=== PATIENT | male | born 1990 | race Caucasian/White ===

== ENCOUNTER 2022-04-01 14:15 | Outpatient (RCR) | payer MEDICARE, OTHER, MEDICAID, SELFPAY | END 2023-03-18 11:02 | disposition home or self-care (01) | PROVIDERS: Visit Provider Physician Assistant | DX: G56.03 Carpal tunnel syndrome, bilateral upper limbs (principal); M25.531 Pain in right wrist; M25.532 Pain in left wrist; Z51.89 Encounter for other specified aftercare | CPT/HCPCS: 97035; 97110; 97140; 97535; X5282 ==

== ENCOUNTER 2022-10-27 14:35 | Emergency (ER) | payer MEDICARE, OTHER, SELFPAY ==
[2022-10-27 14:42] VITALS: BP 123/76; PULSE 85; RESP 20; TEMP 36.6; O2SAT 97; BMI 29.7
[2022-10-27 15:43] VITALS: BP 113/87; PULSE 80; O2SAT 95
[2022-10-27 15:44] VITALS: PULSE 78; O2SAT 96
[2022-10-27 15:45] VITALS: PULSE 82; O2SAT 94
--- NOTE | 2022-10-27 15:53 | ED_ITS ---
HPI - Arrhythmia/Palpitations General Chief Complaint: Arrhythmia/Palpitations Stated Complaint: Heart Concerns Time Seen by Provider: 10/27/22 15:29 History of Present Illness HPI narrative: This 32-year-old male uses Ukrainian sign language for communication. He comes in reporting some palpitations and some very brief discomfort in his left axillary region. These symptoms have been intermittent over the past week or so. He does not have any cardiac history. He denies having any nausea, vomiting, lightheadedness, shortness of breath, or diaphoresis. He does not have any cardiac history or exercise intolerance. Related Data Allergies Allergy/AdvReac Type Severity Reaction Status Date / Time No Known Drug Allergies Allergy Verified 10/27/22 14:50 Review of Systems Status of ROS: Reports: 10 or more systems reviewed and unremarkable except as noted in History and below Narrative: Constitutional: No fevers, no weight gain or loss. Eyes: No discharge. No vision changes. HENT: No congestion, no sore throat, no ear pain. Cardiovascular: Occasional palpitations and brief episodes of chest discomfort in the left axilla and pectoral region. Respiratory: No shortness of breath, no wheezes, no cough. Gastrointestinal: No abdominal pain, no vomiting, no diarrhea. Genitourinary: No dysuria, no hematuria. Musculoskeletal: Normal range of motion. Skin: No rashes, no pruritis. Neurological: No dizziness, weakness, sensory change, speech change. Endo/Heme/Allergies: No bruising or bleeding. No polydipsia. Pysch: no suicidality, no anxiety, no insomnia. All other systems reviewed and are negative. PFSH PFSH Social History Smoking Status: Never smoker Do you use any of these nicotine containing products: None Second hand tobacco smoke exposure: No How often do you have a drink containing alcohol: monthly or less AUDIT-C Alcohol total score: 1 Non-prescribed substance use: denies use Exam Narrative: Exam Narrative: Constitutional: Well-developed, well-nourished, no acute distress. HEENT: Normocephalic, atraumatic. Neck: Normal range of motion. Nontender. Supple. Heart: Regular. No murmurs. Normal rate. Intact distal pulses. Lungs: Clear to auscultation. No chest discomfort. No wheezes, rhonchi, or rales. Abdomen: Normal bowel sounds. Nontender. No rebound tenderness. Genitalia: Deferred. Back: No midline tenderness. Normal range of motion. Extremities: Normal range of motion. No injury. Skin: Intact. No rash. Warm. No erythema or pallor. Neurologic: No altered sensation. No weakness. Alert and oriented. Deaf. Psychiatric: No suicidality. No anxiety or depression. No insomnia. Nursing notes and vitals signs are reviewed. Const: Vital Signs, click to edit/add: Vital Signs - 24 hr 10/27/22 14:42 10/27/22 15:43 10/27/22 15:44 Temperature 97.9 F Pulse Rate 80 78 Pulse Rate [Pulse Oximeter] 85 Respiratory Rate 20 Blood Pressure 113/87 Blood Pressure [Ri ght Upper Arm] 123/76 Pulse Oximetry 97 95 96 Oxygen Delivery Me thod Room Air 10/27/22 15:45 10/27/22 16:00 10/27/22 16:15 Temperature Pulse Rate 82 83 95 Pulse Rate [Pulse Oximeter] Respiratory Rate Blood Pressure Blood Pressure [Ri ght Upper Arm] Pulse Oximetry 94 96 96 Oxygen Delivery Me thod Course Vital Signs Vital signs: Initial Vital Signs Temperature 97.9 F 10/27/22 14:42 Temperature Source Temporal Artery Scan 10/27/22 14:42 Pulse Rate 85 10/27/22 14:42 Pulse Rhythm 10/27/22 14:42 Pulse Strength 3+ Normal 10/27/22 14:42 Respiratory Rate 10/27/22 14:42 Blood Pressure 123/76 10/27/22 14:42 Blood Pressure Mean 91 10/27/22 14:42 Blood Pressure Position Sitting 10/27/22 14:42 Pulse Oximetry 97 10/27/22 14:42 Oxygen Delivery Method 10/27/22 14:42 Vital Signs Temperature 97.9 F 10/27/22 14:42 Pulse Rate 85 10/27/22 14:42 Respiratory Rate 20 10/27/22 14:42 Blood Pressure 123/76 10/27/22 14:42 Pulse Oximetry 97 10/27/22 14:42 Oxygen Delivery Method 10/27/22 14:42 Temperature 97.9 F 10/27/22 14:42 Pulse Rate 95 10/27/22 16:15 Respiratory Rate 20 10/27/22 14:42 Blood Pressure 113/87 10/27/22 15:43 Pulse Oximetry 96 10/27/22 16:15 Oxygen Delivery Method 10/27/22 14:42 MDM - Arrhythmia/Palpitations MDM Narrative Medical decision making narrative: This patient comes in reporting some occasional palpitations and brief episodes of left axillary and pectoral discomfort lasting a few seconds. EKG returns with normal findings. Lab results also are in normal range. His troponin is 0. The patient was observed on the monitor and has normal sinus rhythm without sign of ectopy. These results are reassuring to the patient. Most likely he is having some palpitations and some chest wall pain. At the time of discharge the patient appears safe for outpatient management. The treatment plan is reviewed along with written and verbal return precautions. Reasons to return and the importance of close followup were also reviewed. Lab Data Labs: Lab Results 10/27/22 10/27/22 10/27/22 Range/Units 16:09 16:09 16:09 WBC 7.16 (4.50-11.00) K/uL RBC 4.90 (4.30-5.90) m/uL Hgb 15.8 (13.5-17.5) gm/dL Hct 44.8 (37.0-53.0) % MCV 91 (80-100) fL MCH 32 (26-34) pg MCHC 35 (32-36) gm/dL RDW Coeff of Celso 11.8 (11.5-15.5) % Plt Count 273 (140-440) K/uL Neut % (Auto) 53.3 (42.0-72.0) % Lymph % (Auto) 36.5 (20-44) % [place] % (Auto) 8.1 (0.0-11.0) % Eos % (Auto) 1.5 (0.0-7.0) % Baso % (Auto) 0.6 (0.0-3.0) % Neut # (Auto) 3.82 (1.7-7.0) K/uL Lymph # (Auto) 2.61 (0.90-2.90) K/uL [place] # (Auto) 0.60 (0.00-0.90) K/UL Eos # (Auto) 0.11 (0.00-0.50) K/uL Baso # (Auto) 0.04 (0.00-0.30) K/uL Sodium 140 (135-149) mmol/L Potassium 4.2 (3.6-5.1) mmol/L Chloride 106 (96-114) mmol/L Carbon Dioxide 27 (20-32) mmol/L BUN 14 (5-24) mg/dL Creatinine 1.0 (0.5-1.5) mg/dL Estimated Creat Clear 119.85 Estimated GFR 103 ml/min Glucose 88 (60-115) mg/dL Calcium 9.3 (8.4-10.6) mg/dL Magnesium 1.8 (1.5-2.6) mg/dL POC Troponin I 0.00 L (0.01-0.04) ng/ml ECG Data Attestation: I personally reviewed and interpreted this ECG as follows: Interpretation: Normal sinus rhythm. Rate is 74 beats per minute. There are no ST or T-wave abnormalities. Discharge Plan Discharge Clinical Impression: Acute chest wall pain, Palpitations Patient Disposition: Home, Self-Care Condition: Stable Additional Instructions: Take [id number] medicines as needed and directed. Follow up with primary physician as needed or return if recurrent or worsening symptoms happen. Follow Up/Referrals: Provider,Not a Local [Primary Care Provider] - Stand Alone Forms: [facility] Info Instructions
[2022-10-27 16:00] VITALS: PULSE 83; O2SAT 96
[2022-10-27 16:15] VITALS: PULSE 95; O2SAT 96
[2022-10-27 16:21] LABS: Basophils Absolute Auto 0.04 K/uL (0.00-0.30); Basophils Percent Auto 0.6 % (0.0-3.0); Eosinophils Absolute Auto 0.11 K/uL (0.00-0.50); Eosinophils Percent Auto 1.5 % (0.0-7.0); Hematocrit 44.8 % (37.0-53.0); Hemoglobin* 15.8 gm/dL (13.5-17.5); Lymphocytes Absolute Auto 2.61 K/uL (0.90-2.90); Lymphocytes Percent Auto 36.5 % (20-44); Mean Corpuscular HGB Conc 35 gm/dL (32-36); Mean Corpuscular Hemoglobin 32 pg (26-34); Mean Corpuscular Volume 91 fL (80-100); Monocytes Percent Auto 8.1 % (0.0-11.0); Neutrophils Absolute Auto 3.82 K/uL (1.7-7.0); Neutrophils Percent Auto 53.3 % (42.0-72.0); Platelet Count* 273 K/uL (140-440); RDW Coefficient of Variation % 11.8 % (11.5-15.5); White Blood Count* 7.16 K/uL (4.50-11.00)
[2022-10-27 16:34] LABS: Slide Review Reflex No
[2022-10-27 16:41] LABS: Chloride* 106 mmol/L (96-114)
[2022-10-27 16:42] LABS: Potassium* 4.2 mmol/L (3.6-5.1); Sodium* 140 mmol/L (135-149)
[2022-10-27 16:44] LABS: Est. Creatinine Clearance* 119.85; Estimated Glomerular Filt Rate 103 ml/min
[2022-10-27 16:45] LABS: Blood Urea Nitrogen* 14 mg/dL (5-24); Calcium* 9.3 mg/dL (8.4-10.6); Carbon Dioxide* 27 mmol/L (20-32); Glucose* 88 mg/dL (60-115); Magnesium* 1.8 mg/dL (1.5-2.6)
== END 2022-10-27 17:12 | disposition home or self-care (01) ==
PROVIDERS: Emergency Provider Emergency Medicine Emergency Medical Services
DX: R00.2 Palpitations (principal)
CPT/HCPCS: 36415; 80048; 83735; 84484; 85025; 99284; 99285

== ENCOUNTER 2023-01-22 13:55 | Emergency (ER) | payer MEDICARE, OTHER, SELFPAY ==
[2023-01-22 14:04] VITALS: BP 131/79; PULSE 80; RESP 14; TEMP 36.6; O2SAT 97; BMI 29.7
--- NOTE | 2023-01-22 15:30 | CRLHL7_ITS ---
For Patients: As a result of the Century Cures Act, medical imaging exams and procedure reports are released immediately into your electronic medical record. You may view this report before your referring provider. If you have questions, please contact your health care provider. INDICATION: CHEST PAIN TECHNIQUE: Chest 1 view COMPARISON: None FINDINGS: Cardiovascular and mediastinum: Heart size and vasculature are normal in caliber and appearance. Lungs and pleural spaces: Lungs are clear. No sign of infiltrate or mass. No sign of pleural effusion. No pneumothorax. Bones and soft tissues: No significant findings. IMPRESSION: No acute findings. Dictated by José Luis Nunn MD @ 01/22/2023 3:58:13 PM (Electronically Signed)
[2023-01-22 15:51] LABS: Basophils Absolute Auto 0.04 K/uL (0.00-0.30); Basophils Percent Auto 0.5 % (0.0-3.0); Eosinophils Absolute Auto 0.07 K/uL (0.00-0.50); Eosinophils Percent Auto 0.9 % (0.0-7.0); Hematocrit 46.9 % (37.0-53.0); Hemoglobin* 16.4 gm/dL (13.5-17.5); Immature Granulocytes Abs Auto 0.02 K/uL (0.00-0.30); Immature Granulocytes Pct Auto 0.3 %; Lymphocytes Absolute Auto 2.59 K/uL (0.90-2.90); Lymphocytes Percent Auto 34.5 % (20-44); Mean Corpuscular HGB Conc 35 gm/dL (32-36); Mean Corpuscular Hemoglobin 32 pg (26-34); Mean Corpuscular Volume 91 fL (80-100); Monocytes Percent Auto 6.8 % (0.0-11.0); Neutrophils Absolute Auto 4.27 K/uL (1.7-7.0); Platelet Count* 282 K/uL (140-440); RDW Coefficient of Variation % 11.6 % (11.5-15.5); Red Blood Count 5.14 m/uL (4.30-5.90)
[2023-01-22 15:54] LABS: Slide Review Reflex No
--- NOTE | 2023-01-22 16:01 | ED.GENADULT ---
HPI - General Adult General Chief complaint: Arrhythmia/Palpitations <Avi Levi MD - Last Filed: 01/22/23 16:03> Stated complaint: EKG from <Avi Levi MD - Last Filed: 01/22/23 16:03> Time Seen by Provider: 01/22/23 15:21 <Avi Levi MD - Last Filed: 01/22/23 16:03> History of Present Illness HPI narrative: Patient is a 32-year-old reasonably healthy gentleman who has been experiencing increasing chest pain just to the left of the midline for the last several weeks. Seems to be escalating. He has not experienced any palpitations nausea vomiting weakness fevers chills diaphoresis. He has not been short of breath or coughing. Patient was seen in urgent care today and although his EKG was completely normal he was sent over for further evaluation due to his chest pain. Patient has otherwise been in his usual state of health. Patient's heart hearing and seen with the interactive graphic designer. <Avi Levi MD - Last Filed: 01/22/23 16:03> Related Data Home medications: Home Medications Medication Instructions Recorded Confirmed atorvastatin 10 mg tablet 10 mg PO QDAY 01/22/23 01/22/23 venlafaxine 75 mg capsule,extended 75 mg PO QDAY 01/22/23 01/22/23 release 24 hr (Effexor XR) <Avi Levi MD - Last Filed: 01/22/23 16:03> Allergies/adverse reactions: Allergies Allergy/AdvReac Type Severity Reaction Status Date / Time No Known Drug Allergies Allergy Verified 10/27/22 14:50 <Avi Levi MD - Last Filed: 01/22/23 16:03> Review of Systems Status of ROS: Reports: 10 or more systems reviewed and unremarkable except as noted in History and below <Avi Levi MD - Last Filed: 01/22/23 16:03> PFSH PFSH Social History: Social History Smoking Status: Never smoker Do you use any of these nicotine containing products: None Second hand tobacco smoke exposure: No How often do you have a drink containing alcohol: monthly or less AUDIT-C Alcohol total score: 1 Non-prescribed substance use: denies use <Avi Levi MD - Last Filed: 01/22/23 16:03> Exam Narrative: Exam Narrative: EXAM GENERAL: Patient appears comfortable and well. EYES: No scleral icterus. LYMPH: No supraclavicular or cervical lymphadenopathy. SKIN: Visible skin seen during exam normal or with benign process only. EXT: No dependent lower extremity pedal edema. HEART: Regular rate and rhythm with no murmurs, rubs, or gallops. LUNGS: Clear to auscultation bilaterally with no crackles or wheezes. ABD: Soft, non tender, non distended. PSYCH: Good eye contact, speech is not pressured. <Avi Levi MD - Last Filed: 01/22/23 16:03> Const: Vital Signs, click to edit/add: Vital Signs - 24 hr 01/22/23 14:04 01/22/23 16:18 Temperature 97.8 F Pulse Rate [Pulse Oximeter] 80 80 Respiratory Rate 14 16 Blood Pressure [Ri ght Upper Arm] 131/79 129/84 Pulse Oximetry 97 97 Oxygen Delivery Me thod Room Air Room Air <Avi Levi MD - Last Filed: 01/22/23 16:03> Vital Signs, click to edit/add: Vital Signs - 24 hr 01/22/23 14:04 01/22/23 16:18 Temperature 97.8 F Pulse Rate [Pulse Oximeter] 80 80 Respiratory Rate 14 16 Blood Pressure [Ri ght Upper Arm] 131/79 129/84 Pulse Oximetry 97 97 Oxygen Delivery Me thod Room Air Room Air <Lico Dacosta MD - Last Filed: 01/22/23 16:38> Course Course Hospital Course: Patient seen examined EKG personally reviewed troponin D-dimer CBC basic metabolic panel portable chest x-ray ordered. Case will be followed up by my colleague. <Avi Levi MD - Last Filed: 01/22/23 16:03> Reevaluation(s) Reevaluation #1: 4:00 PM sign-out accepted from Dr. Levi, please see his note for complete history and physical. Briefly, 32-year-old male who has been experiencing chest pains for the last couple of weeks, initially seen in urgent care and sent to the emergency department. Initial EKG reassuring. Labs are pending. <Lico Dacosta MD - Last Filed: 01/22/23 16:38> Time: 16:00 <Lico Dacosta MD - Last Filed: 01/22/23 16:38> Reevaluation #2: Chest x-ray independently interpreted by me does not demonstrate any acute effusion. Labs independently interpreted by me demonstrates normal CBC, negative troponin, negative basic panel. <Lico Dacosta MD - Last Filed: 01/22/23 16:38> Time: 16:23 <Lico Dacosta MD - Last Filed: 01/22/23 16:38> Reevaluation #3: Troponin is negative, given duration of symptoms, repeat troponin not indicated for rule out ACS. Patient is stable for discharge with follow-up with primary care. At this time, no evidence for acute coronary syndrome, pulmonary embolism, pneumonia, hemothorax, pneumothorax. <Lico Dacosta MD - Last Filed: 01/22/23 16:38> Time: 16:38 <Lico Dacosta MD - Last Filed: 01/22/23 16:38> Vital Signs Vital signs: Initial Vital Signs Temperature 97.8 F 01/22/23 14:04 Temperature Source Temporal Artery Scan 01/22/23 14:04 Pulse Rate 80 01/22/23 14:04 Pulse Rhythm Regular 01/22/23 14:04 Respiratory Rate 14 01/22/23 14:04 Blood Pressure 131/79 01/22/23 14:04 Blood Pressure Mean 96 01/22/23 14:04 Blood Pressure Position Sitting 01/22/23 14:04 Pulse Oximetry 97 01/22/23 14:04 Oxygen Delivery Method Room Air 01/22/23 14:04 Vital Signs Temperature 97.8 F 01/22/23 14:04 Pulse Rate 80 01/22/23 14:04 Respiratory Rate 14 01/22/23 14:04 Blood Pressure 131/79 01/22/23 14:04 Pulse Oximetry 97 01/22/23 14:04 Oxygen Delivery Method Room Air 01/22/23 14:04 Temperature 97.8 F 01/22/23 14:04 Pulse Rate 80 01/22/23 16:18 Respiratory Rate 16 01/22/23 16:18 Blood Pressure 129/84 01/22/23 16:18 Pulse Oximetry 97 01/22/23 16:18 Oxygen Delivery Method Room Air 01/22/23 16:18 <Avi Levi MD - Last Filed: 01/22/23 16:03> Initial Vital Signs Temperature 97.8 F 01/22/23 14:04 Temperature Source Temporal Artery Scan 01/22/23 14:04 Pulse Rate 80 01/22/23 14:04 Pulse Rhythm Regular 01/22/23 14:04 Respiratory Rate 14 01/22/23 14:04 Blood Pressure 131/79 01/22/23 14:04 Blood Pressure Mean 96 01/22/23 14:04 Blood Pressure Position Sitting 01/22/23 14:04 Pulse Oximetry 97 01/22/23 14:04 Oxygen Delivery Method Room Air 01/22/23 14:04 Vital Signs Temperature 97.8 F 01/22/23 14:04 Pulse Rate 80 01/22/23 14:04 Respiratory Rate 14 01/22/23 14:04 Blood Pressure 131/79 01/22/23 14:04 Pulse Oximetry 97 01/22/23 14:04 Oxygen Delivery Method Room Air 01/22/23 14:04 Temperature 97.8 F 01/22/23 14:04 Pulse Rate 80 01/22/23 16:18 Respiratory Rate 16 01/22/23 16:18 Blood Pressure 129/84 01/22/23 16:18 Pulse Oximetry 97 01/22/23 16:18 Oxygen Delivery Method Room Air 01/22/23 16:18 <Lico Dacosta MD - Last Filed: 01/22/23 16:38> Medical Decision Making Lab Data Labs: Lab Results 01/22/23 Range/Units 15:40 WBC 7.50 (4.50-11.00) K/uL RBC 5.14 (4.30-5.90) m/uL Hgb 16.4 (13.5-17.5) gm/dL Hct 46.9 (37.0-53.0) % MCV 91 (80-100) fL MCH 32 (26-34) pg MCHC 35 (32-36) gm/dL RDW Coeff of Celso 11.6 (11.5-15.5) % Plt Count 282 (140-440) K/uL Neut % (Auto) 57.0 (42.0-72.0) % Lymph % (Auto) 34.5 (20-44) % [place] % (Auto) 6.8 (0.0-11.0) % Eos % (Auto) 0.9 (0.0-7.0) % Baso % (Auto) 0.5 (0.0-3.0) % Neut # (Auto) 4.27 (1.7-7.0) K/uL Lymph # (Auto) 2.59 (0.90-2.90) K/uL [place] # (Auto) 0.50 (0.00-0.90) K/UL Eos # (Auto) 0.07 (0.00-0.50) K/uL Baso # (Auto) 0.04 (0.00-0.30) K/uL D-Dimer Quant (PE/DVT) 0.28 (0.00-0.50) ug/ml Sodium 138 (135-149) mmol/L Potassium 4.0 (3.6-5.1) mmol/L Chloride 101 (96-114) mmol/L Carbon Dioxide 28 (20-32) mmol/L BUN 15 (5-24) mg/dL Creatinine 0.8 (0.5-1.5) mg/dL Estimated Creat Clear 149.81 Estimated GFR 121 ml/min Glucose 94 (60-115) mg/dL Calcium 9.7 (8.4-10.6) mg/dL Troponin I < 0.01 L (0.01-0.04) ng/mL <Avi Levi MD - Last Filed: 01/22/23 16:03> Lab Results 01/22/23 Range/Units 15:40 WBC 7.50 (4.50-11.00) K/uL RBC 5.14 (4.30-5.90) m/uL Hgb 16.4 (13.5-17.5) gm/dL Hct 46.9 (37.0-53.0) % MCV 91 (80-100) fL MCH 32 (26-34) pg MCHC 35 (32-36) gm/dL RDW Coeff of Celso 11.6 (11.5-15.5) % Plt Count 282 (140-440) K/uL Neut % (Auto) 57.0 (42.0-72.0) % Lymph % (Auto) 34.5 (20-44) % [place] % (Auto) 6.8 (0.0-11.0) % Eos % (Auto) 0.9 (0.0-7.0) % Baso % (Auto) 0.5 (0.0-3.0) % Neut # (Auto) 4.27 (1.7-7.0) K/uL Lymph # (Auto) 2.59 (0.90-2.90) K/uL [place] # (Auto) 0.50 (0.00-0.90) K/UL Eos # (Auto) 0.07 (0.00-0.50) K/uL Baso # (Auto) 0.04 (0.00-0.30) K/uL D-Dimer Quant (PE/DVT) 0.28 (0.00-0.50) ug/ml Sodium 138 (135-149) mmol/L Potassium 4.0 (3.6-5.1) mmol/L Chloride 101 (96-114) mmol/L Carbon Dioxide 28 (20-32) mmol/L BUN 15 (5-24) mg/dL Creatinine 0.8 (0.5-1.5) mg/dL Estimated Creat Clear 149.81 Estimated GFR 121 ml/min Glucose 94 (60-115) mg/dL Calcium 9.7 (8.4-10.6) mg/dL Troponin I < 0.01 L (0.01-0.04) ng/mL <Lico Dacosta MD - Last Filed: 01/22/23 16:38> Discharge Plan Discharge Prescriptions: No Action venlafaxine [Effexor XR] 75 mg capsule,extended release 24hr 75 mg PO QDAY atorvastatin 10 mg tablet 10 mg PO QDAY <Avi Levi MD - Last Filed: 01/22/23 16:03> Follow Up/Referrals: Provider,Not a Local [Primary Care Provider] - <Avi Levi MD - Last Filed: 01/22/23 16:03>
[2023-01-22 16:02] LABS: Chloride* 101 mmol/L (96-114); Sodium* 138 mmol/L (135-149)
[2023-01-22 16:05] LABS: Blood Urea Nitrogen* 15 mg/dL (5-24); Carbon Dioxide* 28 mmol/L (20-32); Creatinine* 0.8 mg/dL (0.5-1.5); Est. Creatinine Clearance* 149.81; Estimated Glomerular Filt Rate 121 ml/min
[2023-01-22 16:06] LABS: Calcium* 9.7 mg/dL (8.4-10.6); Glucose* 94 mg/dL (60-115)
[2023-01-22 16:07] LABS: D Dimer Quantitative* 0.28 ug/ml (0.00-0.50)
[2023-01-22 16:18] VITALS: BP 129/84; PULSE 80; RESP 16; O2SAT 97
[2023-01-22 16:34] LABS: Troponin I* < 0.01 ng/mL (0.01-0.04)
== END 2023-01-22 16:47 | disposition home or self-care (01) ==
PROVIDERS: Internal Medicine; Emergency Provider Family Medicine
DX: R07.9 Chest pain, unspecified (principal)
CPT/HCPCS: 36415; 71045; 80048; 84484; 85025; 85379; 99284; 99285